=== PATIENT | male | born 1975 | race American Indian/Alaskan Native ===

== ENCOUNTER 2025-02-15 00:48 | Inpatient (IN) | payer MEDICAID ==
[2025-02-15] MEDS ORDERED: Magnesium Hydroxide 400 MG/5 ML Susp 30 ML Cup PO PRN (01:11)
[2025-02-15] MEDS ORDERED: Ondansetron 4 MG Tab.DIS PO PRN (01:11)
[2025-02-15] MEDS ORDERED: Sennosides/Docusate Sodium 50-8.6 MG Tab PO PRN (01:11)
[2025-02-15] MEDS ORDERED: Ondansetron 4 MG/2 ML SDV IV PRN (01:11)
[2025-02-15] MEDS: Norepinephrine Bit/D5W Premix 4 MG in Premix Bag 1 BAG IV SCH (01:44)
[2025-02-15 05:47] LABS: PLATELET COUNT,PLT 183.0 K/uL (130-375); RED BLOOD CELL COUNT 5.07 M/uL (4.14-5.76); WHITE BLOOD CELL COUNT,WBC 9.1 K/uL (3.2-11.0)
[2025-02-15 06:14] LABS: BLOOD UREA NITROGEN,BUN 19.0 mg/dL (7-18); CARBON DIOXIDE,CO2 29.0 mmol/L (21-32); CHLORIDE,CL 106.0 mmol/L (100-108); CREATININE 1.4 mg/dL (0.8-1.3); EST CRCL DRUG DOSING (CG) 68.73 mL/min; ESTIMATED GFR 62.0 mL/min (>60); GLUCOSE RANDOM 105.0 mg/dL (74-106); POTASSIUM,K 5.3 mmol/L (3.6-5.2); SODIUM,NA 140.0 mmol/L (140-148); TROPONIN I HIGH SENSITIVITY 21.6 pg/mL (<=60.3)
== END 2025-02-15 14:50 | disposition home or self-care (01) | DRG 918 ==
LOC: JP.ICU 00:48
PROVIDERS: ADMIT Internal Medicine; ATTEND Internal Medicine
DX: T40.711A Poisoning by cannabis, accidental (unintentional), initial encounter (principal); I50.22 Chronic systolic (congestive) heart failure; I95.2 Hypotension due to drugs; F17.200 Nicotine dependence, unspecified, uncomplicated; T50.905A Adverse effect of unspecified drugs, medicaments and biological substances, initial encounter; R55 Syncope and collapse; I48.0 Paroxysmal atrial fibrillation; Z79.01 Long term (current) use of anticoagulants; Z79.82 Long term (current) use of aspirin; Z79.899 Other long term (current) drug therapy
CPT/HCPCS: 36415; 80048; 83605; 84484; 85027; 93010; A9270-GY